=== PATIENT | male | born 1945 | race Caucasian/White ===

== ENCOUNTER 2019-02-10 06:19 | Inpatient (IN) ==
[2019-02-10 07:17] LABS: Appearance Urine Turbid (Clear)
[2019-02-10 07:25] LABS: Color Urine Red
[2019-02-10 07:26] LABS: Specific Gravity Urine 1.009 (1.000-1.060)
[2019-02-10 07:27] LABS: Protein Urine Positive (Negative)
[2019-02-10 07:31] LABS: Epithelial Cell Urine 0-5 /lpf (0-5); RBC Urine >30 /hpf (0-4)
[2019-02-10 07:32] LABS: Bacteria Urine 2+ (Negative)
--- NOTE | 2019-02-10 07:47 | History & Physical Report ---
Date of Service February 10, 2019 Assessment & Plan (1) Hematuria: More than likely from Smith related irritation. Unfortunately he is obstructing his Smith now. Work-up continuous bladder irrigation, consult urology. No signs or symptoms of infection. Follow clinically. (2) BPH with obstruction/lower urinary tract symptoms: He is in a bad situation with this, Smith drainage alone is no longer working because of the hematuria/clotting up of his catheter. More than likely this will need an acute remedy for him even to be on to be safe at home. Consult urology, anticipate strong possibility of OR versus if this improves with irrigation. Follow clinically (3) Acute urinary retention: See above (4) BPH (benign prostatic hyperplasia): See above. Until it is clear what is going on operatively, we will continue his tamsulosin and terazosin. (5) Hyperlipidemia: P.o. (6) Complication, blocked Smith catheter: See above (7) DVT prophylaxis: SCDs (pharmacologic prophylaxis contraindicated due to his gross hematuria) (8) Discharge planning issues: Admission to medical under [facility] service, urology consult. His acute situation appears to need a fairly significant remedy given that outpatient management is failed multiple times. (9) Agent orange exposure: (10) History of pneumonectomy: History of Present Illness Chief Complaint: Urinary retention, hematuria Primary Care Provider: Trav Yadav Patient very pleasant 73-year-old male who notes the last maybe 10 to 11 days he has had difficulties with urinary retention. He notes that his PCP has been following his prostate for the last several years and was recommending urology evaluation (presumably for a TURP) but patient had been declining. Then unfortunately about 2 weeks ago he started to have difficulty voiding. He has had Smith catheters placed which alleviates the obstruction, but then whenever they are removed he is no longer able to void. After this he started with hematuria, seemingly after placement of 1 of the catheters. Now he is having difficulty with his catheter obstructing with blood. Whenever it flushes he is much more comfortable, but then whenever it clogs obviously he quickly becomes uncomfortable. Right now he is feeling better than he was before given that his catheter was recently flushed. He has not had any fevers, chills, sweats, nausea, vomiting. And if it was not for his bladder issues would feel like he is in his baseline state of health. Review of systems otherwise negative except for as above Allergies Allergy/AdvReac Type Severity Reaction Status Date / Time iodine Allergy Intermediate SEAFOOD-HIV Verified 02/10/19 00:00 ES SEAFOOD Allergy Intermediate Hives Uncoded 02/10/19 00:00 Home Medications Home Medications Medication Instructions Recorded Confirmed Type finasteride 5 mg PO HS 09/02/18 02/10/19 History multivitamin 1 tab PO QAM 09/02/18 02/10/19 History simvastatin 10 mg PO HS 02/04/19 02/10/19 History tamsulosin [Flomax] 0.4 mg PO DAILY #10 cap 02/04/19 02/10/19 Rx aspirin, buffered 325 mg PO DAILY 02/10/19 02/10/19 History buspirone 10 mg PO BID 02/10/19 02/10/19 History calcium carbonate-vitamin D3 1 tab PO BID 02/10/19 02/10/19 History [Calcium 500 + D] olodaterol 2 inh INHALATION DAILY 02/10/19 02/10/19 History terazosin 5 mg PO BID 02/10/19 02/10/19 History Past Med/Surg History Medical History Agent orange exposure Hyperlipidemia BPH (benign prostatic hyperplasia) Anxiety (Chronic) Surgical History History of pneumonectomy Family History Other Family history non-contributory Vascular disease Social History Preferred Language: Irish Feels Safe at Home: Yes Smoking Status: Former smoker Review of Systems Review of Systems: All systems reviewed & are unremarkable except as noted in HPI & below Physical Exam Physical Exam: General he is awake alert oriented pleasant but appears to be in moderate distress HEENTnormocephalic atraumatic mucous membranes moist Cardioregular no rub murmurs or gallops Lungsclear to auscultation no rales rhonchi or wheezes with good effort Abdomen soft nondistended until his lower abdomen where he is mildly distended and quite tender over his bladder, no guarding/rebound/rigidity Extremities show no sinus clubbing or edema no calf tenderness Skin no rashes no pallor icterus Neuro cranial nerves II through XII grossly intact gross motor and sensory intact Musculoskeletalno gross deformities Mental status good recent and remote recall normal mood and affect good judgment and insight Results & Data Vital Signs (Past 12 Hours) Vital Signs Temp Pulse Resp BP Pulse Ox 02/10/19 06:40 97 02/10/19 06:33 36.5 C 80 20 155/103 H 97 PG Care Time/CCT Total # of Minutes Spent Total Time Spent with Patient: Total time spent is greater than 50% in coordination of care (as documented) at patient's floor/unit and/or counseling patient: (1) Hematuria Hematuria type: unspecified type Qualified Code(s): R31.9 - Hematuria, unspecified (2) Complication, blocked Smith catheter Encounter type: initial encounter Qualified Code(s): T83.091A - Other mechanical complication of indwelling urethral catheter, initial encounter
[2019-02-10 08:13] LABS: Basophils # (auto) 0.06 K/uL (0-0.2); Basophils % (auto) 0.6 %; Eosinophils # (auto) 0.24 K/uL (0-0.5); Eosinophils % (auto) 2.5 %; Hematocrit (blood only) 42.5 % (42-52); Hemoglobin 15.3 g/dL (14.0-18.0); Immature Granulocytes # (auto) 0.02 K/uL (0.00-0.02); Immature Granulocytes % (auto) 0.2 %; Lymphocytes # (auto) 0.91 K/uL (1.2-3.4); Lymphocytes % (auto) 9.4 %; Mean Corpuscular Volume 89.7 fL (80-100); Mean Platelet Volume 9.8 fL (7.4-10.4); Monocytes # (auto) 0.77 K/uL (0.11-0.59); Neutrophils # (auto) 7.64 K/uL (1.4-6.5); Neutrophils % (auto) 79.3 %; Platelet Count 130 K/uL (130-400); RDW Coefficient of Variation 12.6 % (11.5-14.5); RDW Standard Deviation 41.4 fL (36.4-46.3); Red Blood Count 4.74 M/uL (4.7-6.1); White Blood Count 9.64 K/uL (4.8-10.8)
[2019-02-10 08:31] LABS: iSTAT Creatinine 1.3 mg/dl (0.6-1.3); iSTAT Ionized Calcium 1.22 mmol/l (1.12-1.32); iSTAT Potassium 4.2 mEq/L (3.3-5.0)
[2019-02-10 08:36] LABS: BUN Creatinine Ratio 16.7 (10-20); Calcium 9.7 mg/dl (8.5-10.1); Creatinine Clr Calc Pharmacy 54.8 ml/min; Est GFR (African American) 59.3; Est GFR (Non-African American) 51.2; Potassium 4.1 mmol/L (3.5-5.1)
[2019-02-10 08:39] LABS: Albumin Globulin Ratio 1.2 (0.9-2); Bilirubin,Total 0.8 mg/dl (0.2-1); Globulin 3.4 gm/dl (2.5-4.0); Total Protein 7.4 gm/dl (6.4-8.2)
[2019-02-10] MEDS ORDERED: TERAZOSIN HCL 5 MG CAP PO SCH (09:02)
[2019-02-10] MEDS ORDERED: TAMSULOSIN HCL 0.4 MG CAP PO SCH (09:02)
[2019-02-10] MEDS ORDERED: ONDANSETRON INJ 2 MG/ML 2 ML VIAL IV PRN (09:02)
--- NOTE | 2019-02-10 09:04 | Emergency Department Note ---
History of Present Illness General Chief complaint: Catheter Replacement Stated complaint: CATH REPL Time Seen by Provider: 02/10/19 06:29 Source: patient, family, RN notes reviewed and old records reviewed Mode of arrival: ambulatory Limitations: no limitations History of Present Illness Provider complaint: Hematuria with suprapubic abd pain Onset (ago): hour(s) less than 1 Location: pelvis Radiation: non-radiation Severity: severe and similar to prior episodes Pain Consistency: + constant Maximum Pain Intensity: 10 Quality: + aching Relieved By: + none Exacerbated By: + none Associated symptoms: + denies other symptoms Treatments prior to arrival: none This is a 73-year-old male who presents back to the emergency department after continued bleeding from his Smith catheter which is causing the catheter declogged. Patient was here earlier in the night and had the Smith irrigated. At that time he was draining clear fluid. Patient began bleeding again. He is still awaiting to see a urologist with the [facility]. Home Medications Home Medications Medication Instructions Recorded Confirmed Type finasteride 5 mg PO HS 09/02/18 02/10/19 History multivitamin 1 tab PO QAM 09/02/18 02/10/19 History simvastatin 10 mg PO HS 02/04/19 02/10/19 History tamsulosin [Flomax] 0.4 mg PO DAILY #10 cap 02/04/19 02/10/19 Rx aspirin, buffered 325 mg PO DAILY 02/10/19 02/10/19 History buspirone 10 mg PO BID 02/10/19 02/10/19 History calcium carbonate-vitamin D3 1 tab PO BID 02/10/19 02/10/19 History [Calcium 500 + D] olodaterol 2 inh INHALATION DAILY 02/10/19 02/10/19 History terazosin 5 mg PO BID 02/10/19 02/10/19 History Allergies Allergy/AdvReac Type Severity Reaction Status Date / Time iodine Allergy Intermediate SEAFOOD-HIV Verified 02/10/19 00:00 ES SEAFOOD Allergy Intermediate Hives Uncoded 02/10/19 00:00 Past Med/Surg History Medical History Agent orange exposure Hyperlipidemia BPH (benign prostatic hyperplasia) Anxiety (Chronic) Surgical History History of pneumonectomy Family History Other Family history non-contributory Vascular disease Social History Preferred Language: Iraqi Communication Ability: Effective Sport Intern Required: No Beliefs That Will Affect Care: None Current Living Situation: Significant Other Other Information That Helps Us Care for You: No Feels Safe at Home: Yes Safety Concerns: Feels Safe At This Time Smoking Status: Former smoker Tobacco Type: cigarettes Cigarettes Per Day: 40 pack year history Do You Dip or Chew Tobacco: No Second Hand Exposure: No Tobacco Cessation Education Requested by Patient: No Hx Alcohol Use: No Hx Substance Use: No Review of Systems A total of 10 systems reviewed and were otherwise negative Physical Exam Vital Signs Vital Signs - 24 hr 02/10/19 06:33 02/10/19 06:40 02/10/19 08:23 Temperature 36.5 C Temperature Source Oral Sepsis Recent Fever Within 48 Hours No Sepsis Action Taken by Nursing No Action Required Pulse Rate 80 Pulse Rate [Finger] 64 Respiratory Rate 20 16 Blood Pressure 155/103 H Blood Pressure [Right Arm] 142/85 H Blood Pressure Mean 120 Blood Pressure Mean [Right Arm] 104 Pulse Oximetry 97 97 98 Oxygen Delivery Method Room Air Room Air GENERAL: Patient is a healthy-appearing well-nourished HEAD: Normocephalic atraumatic EYES: Ocular movements intact pupils equal and react to light OROPHARYNX mucous membranes are moist no exudates present no erythema or edema present NECK: Supple no nuchal rigidity CHEST: Good equal expansion LUNGS: Clear and equal to auscultation CARDIAC: Normal S1 and S2 ABDOMEN: Soft tenbder in suprapubic area, Smith in place draining bloody discharge BACK: No CVA tenderness EXTREMITIES: No pain upon palpation normal muscle strength in all groups no clubbing cyanosis or edema NEURO: Patient is following commands is answering questions appropriately. Alert and oriented x3 Cranial Nerves 2-12 grossly intact Medical Decision Making Laboratory Data Result diagrams: 02/10/19 08:00 02/10/19 08:00 Lab Results 02/10/19 02/10/19 02/10/19 Range/Units 06:45 08:00 08:00 WBC 9.64 (4.8-10.8) K/uL RBC 4.74 (4.7-6.1) M/uL Hgb 15.3 (14.0-18.0) g/dL POC Hgb (14.0-18.0) g/dl Hct 42.5 (42-52) % POC Hct (42-52) % MCV 89.7 (80-100) fL MCH 32.3 (25-34) pg MCHC 36.0 (32-36) g/dL RDW Std Deviation 41.4 (36.4-46.3) fL RDW Coeff of Henrry 12.6 (11.5-14.5) % Plt Count 130 (130-400) K/uL MPV 9.8 (7.4-10.4) fL Immature Gran % (Auto) 0.2 % Neut % (Auto) 79.3 % Lymph % (Auto) 9.4 % Quay % (Auto) 8.0 % Eos % (Auto) 2.5 % Baso % (Auto) 0.6 % Immature Gran # (Auto) 0.02 (0.00-0.02) K/uL Neut # (Auto) 7.64 H (1.4-6.5) K/uL Lymph # (Auto) 0.91 L (1.2-3.4) K/uL Quay # (Auto) 0.77 H (0.11-0.59) K/uL Eos # (Auto) 0.24 (0-0.5) K/uL Baso # (Auto) 0.06 (0-0.2) K/uL POC Sodium (135-144) mEq/L Sodium 139 (136-145) mmol/L POC Potassium (3.3-5.0) mEq/L Potassium 4.1 (3.5-5.1) mmol/L POC Chloride (101-112) mEq/L Chloride 106 (98-107) mmol/L Carbon Dioxide 25 (21-32) mmol/L POC Total CO2 (24-31) mEq/l Anion Gap 7.0 (3-11) POC Anion Gap (16-25) mmol/L POC BUN (7-18) mg/dl BUN 23 H (7-18) mg/dl Creatinine 1.37 (0.6-1.4) mg/dl POC Creatinine (0.6-1.3) mg/dl Est Cr Clr Drug Dosing 54.8 ml/min Est GFR ( Amer) 59.3 Est GFR (Non-Af Amer) 51.2 BUN/Creatinine Ratio 16.7 (10-20) Glucose 121 H (70-99) mg/dl POC Glucose (other) (70-99) mg/dl Calcium 9.7 (8.5-10.1) mg/dl POC Ioniz Calcium Pamela (1.12-1.32) mmol/l Total Bilirubin 0.8 (0.2-1) mg/dl AST 24 (15-37) U/L ALT 45 (12-78) U/L Alkaline Phosphatase 61 (45-117) U/L Total Protein 7.4 (6.4-8.2) gm/dl Albumin 4.0 (3.4-5.0) gm/dl Globulin 3.4 (2.5-4.0) gm/dl Albumin/Globulin Ratio 1.2 (0.9-2) Lipase 159 (73-393) U/L Urine Color Red Urine Appearance Turbid A (Clear) Urine pH (4.5-7.5) Ur Specific Sinai 1.009 (1.000-1.060) Urine Protein Positive H (Negative) Urine Glucose (UA) (Negative) Urine Ketones (Negative) Urine Blood (Negative) Urine Nitrite (Negative) Urine Bilirubin (Negative) Urine Urobilinogen (Negative) Ur Leukocyte Esterase (Negative) Urine RBC >30 H (0-4) /hpf Urine WBC 5-10 H (0-5) /hpf Ur Epithelial Cells 0-5 (0-5) /lpf Urine Bacteria 2+ H (Negative) Hyaline Casts 5-10 H (0-5) /lpf 02/10/19 Range/Units 08:09 WBC (4.8-10.8) K/uL RBC (4.7-6.1) M/uL Hgb (14.0-18.0) g/dL POC Hgb 15.0 (14.0-18.0) g/dl Hct (42-52) % POC Hct 44 (42-52) % MCV (80-100) fL MCH (25-34) pg MCHC (32-36) g/dL RDW Std Deviation (36.4-46.3) fL RDW Coeff of Henrry (11.5-14.5) % Plt Count (130-400) K/uL MPV (7.4-10.4) fL Immature Gran % (Auto) % Neut % (Auto) % Lymph % (Auto) % Quay % (Auto) % Eos % (Auto) % Baso % (Auto) % Immature Gran # (Auto) (0.00-0.02) K/uL Neut # (Auto) (1.4-6.5) K/uL Lymph # (Auto) (1.2-3.4) K/uL Quay # (Auto) (0.11-0.59) K/uL Eos # (Auto) (0-0.5) K/uL Baso # (Auto) (0-0.2) K/uL POC Sodium 139 (135-144) mEq/L Sodium (136-145) mmol/L POC Potassium 4.2 (3.3-5.0) mEq/L Potassium (3.5-5.1) mmol/L POC Chloride 103 (101-112) mEq/L Chloride (98-107) mmol/L Carbon Dioxide (21-32) mmol/L POC Total CO2 22 L (24-31) mEq/l Anion Gap (3-11) POC Anion Gap 19.0 (16-25) mmol/L POC BUN 24 H (7-18) mg/dl BUN (7-18) mg/dl Creatinine (0.6-1.4) mg/dl POC Creatinine 1.3 (0.6-1.3) mg/dl Est Cr Clr Drug Dosing ml/min Est GFR ( Amer) Est GFR (Non-Af Amer) BUN/Creatinine Ratio (10-20) Glucose (70-99) mg/dl POC Glucose (other) 124 H (70-99) mg/dl Calcium (8.5-10.1) mg/dl POC Ioniz Calcium Pamela 1.22 (1.12-1.32) mmol/l Total Bilirubin (0.2-1) mg/dl AST (15-37) U/L ALT (12-78) U/L Alkaline Phosphatase (45-117) U/L Total Protein (6.4-8.2) gm/dl Albumin (3.4-5.0) gm/dl Globulin (2.5-4.0) gm/dl Albumin/Globulin Ratio (0.9-2) Lipase (73-393) U/L Urine Color Urine Appearance (Clear) Urine pH (4.5-7.5) Ur Specific Sinai (1.000-1.060) Urine Protein (Negative) Urine Glucose (UA) (Negative) Urine Ketones (Negative) Urine Blood (Negative) Urine Nitrite (Negative) Urine Bilirubin (Negative) Urine Urobilinogen (Negative) Ur Leukocyte Esterase (Negative) Urine RBC (0-4) /hpf Urine WBC (0-5) /hpf Ur Epithelial Cells (0-5) /lpf Urine Bacteria (Negative) Hyaline Casts (0-5) /lpf MDM Narrative This is a 73-year-old male who presents emergency department complaining of continued blocked Smith. I will note that the patient has been here a number of times over the past 2 weeks. Based on this I did discuss the case with the urologist who asked that the patient be admitted to the hospital. I did discuss the case with the hospitalist service who agreed to admit the patient. Patient was in agreement with the treatment plan. Impression & Plan Acute urinary retention, Hematuria Discharge Plan Visit Data Chief Complaint: Catheter Replacement Stated Complaint: CATH REPL ED Provider: Dominic Fleming Discharge Problem: Acute urinary retention, Hematuria Discharge Instructions Interventions: ED Discharge Assessment Last Done: 02/10/19 08:31 Discharge Problem: Hematuria Qualifiers: Hematuria type: unspecified type Qualified Code(s): R31.9 - Hematuria, unspeci fied
--- NOTE | 2019-02-10 09:05 | CT Scan Report ---
CT OF THE ABDOMEN AND PELVIS WITHOUT CONTRAST CLINICAL HISTORY: Blocked dong. COMPARISON STUDY: CT of the abdomen and pelvis February 04, 2019. TECHNIQUE: Axial images of the abdomen and pelvis were obtained without IV contrast. Images were revi ewed in the axial, sagittal, and coronal planes. Automated exposure control was utilized for the bonnie dy. A dose lowering technique was utilized adhering to the principles of ALARA. FINDINGS: Imaged portions of the lower chest partially visualize a left pneumonectomy. Fatty infiltra tion of the liver is noted. Unenhanced images of the spleen, adrenal glands and pancreas are unremark able. Evaluation of the abdomen and pelvis is suboptimal on this unenhanced examination. A few puncta te left renal calculi are present. There are no ureteral calculi. There is no hydronephrosis or hydro ureter. The prostate is enlarged, measuring 6.2 cm in transverse dimension. The bladder is collapsed and contains a Dong balloon and trace gas. The Dong catheter appears appropriately positioned. Ther e is no evidence for a bowel obstruction. The appendix is normal. There are no suspicious osseous les ions. No lymphadenopathy is present. The small bilateral renal lesions shown on prior contrast enhanc ed CT or better appreciated on that exam. IMPRESSION: 1. Decompressed urinary bladder containing a Dong balloon and trace gas. Dong catheter appears appr opriately positioned. Moderate enlargement of the prostate. No hydronephrosis. 2. Punctate left renal calculi. No ureteral calculi. 2. Fatty liver. Electronically signed by: Stefano Steel M.D. 02/10/2019 9:04 AM
[2019-02-10 09:07] VITALS: PULSE 77; TEMP 98.1; O2SAT 95
--- NOTE | 2019-02-10 09:33 | Urology Consultation ---
Date of Consultation February 10, 2019 Assessment & Plan (1) Acute urinary retention: A/P: 73-year-old male with BPH on maximal medical therapy, recurrent gross hematuria and urinary retention. Patient provided a p.o. diet today as his urine appeared to be clearing with intermittent fluctuation of his hematuria. 16 [place] [address] in [address] was at risk for obstruction with relatively small clots. This was therefore exchanged for a 20 [place] coud catheter with 10 cc of sterile water placed in the balloon. Bladder was irrigated manually by myself with return of a number of small clots but otherwise clear urine suggesting no active bleeding. Triggers for prostatic bleeding such as perineal pressure or physical activity are reviewed with the patient. We will leave the catheter in place to gravity drainage to allow for bladder and urethral rest in the short-term. Patient is offered follow-up with our service versus continued follow-up through the [place] service. He opts for the former. Seen his history we will tentatively schedule the patient for a greenlight TURP and arrange for office cystoscopy for evaluation of his anatomy prior to the OR. Risks and benefits as well as surgical plan are reviewed with the patient who vocalizes good understanding of the treatment plan. (2) BPH with obstruction/lower urinary tract symptoms: (3) Hematuria: History of Present Illness Reason for Consultation: Urinary retention, recurrent gross hematuria, BPH. Attending Physician: Cy Caldwell DO History of Present Illness Patient is a pleasant 73-year-old male, resident of [place], with a long-standing history of bothersome voiding symptoms on maximal medical therapy with finasteride and tamsulosin as an outpatient. He reports that he has seen a urologist at the [facility] in [place] and undergone numerous cystoscopies demonstrating BPH with no bladder lesions. Due to recurrent gross hematuria, clot retention and urinary retention a TURP has been recommended. Patient was referred to [place] to have this done via the [place] system. Unfortunately, over the course of the recent past, patient has developed difficulties with recurrent gross hematuria, clot retention requiring Smith placement and irrigation. He has been admitted for possible intervention after placement of a 16 [place] Smith catheter which required irrigation. Urology is consulted acutely to assist with his care. Allergies Allergy/AdvReac Type Severity Reaction Status Date / Time iodine Allergy Intermediate SEAFOOD-HIV Verified 02/10/19 00:00 ES SEAFOOD Allergy Intermediate Hives Uncoded 02/10/19 00:00 Home Medications Home Medications Medication Instructions Recorded Confirmed Type finasteride 5 mg PO HS 09/02/18 02/10/19 History multivitamin 1 tab PO QAM 09/02/18 02/10/19 History simvastatin 10 mg PO HS 02/04/19 02/10/19 History tamsulosin [Flomax] 0.4 mg PO DAILY #10 cap 02/04/19 02/10/19 Rx aspirin, buffered 325 mg PO DAILY 02/10/19 02/10/19 History buspirone 10 mg PO BID 02/10/19 02/10/19 History calcium carbonate-vitamin D3 1 tab PO BID 02/10/19 02/10/19 History [Calcium 500 + D] olodaterol 2 inh INHALATION DAILY 02/10/19 02/10/19 History terazosin 5 mg PO BID 02/10/19 02/10/19 History Patient History Medical History Agent orange exposure Hyperlipidemia BPH (benign prostatic hyperplasia) Anxiety (Chronic) Surgical History History of pneumonectomy Family History Other Family history non-contributory Vascular disease Social History Preferred Language: Thai Communication Ability: Effective Beliefs That Will Affect Care: None Current Living Situation: Significant Other Feels Safe at Home: Yes Smoking Status: Former smoker Tobacco Type: cigarettes Cigarettes Per Day: 40 pack year history Second Hand Exposure: No Hx Alcohol Use: No Hx Substance Use: No Review of Systems Constitutional: no fever and no chills Eyes: no diplopia and no decreased night vision Ear, Nose, Mouth, Throat: no ear pain and no ear trauma Respiratory: no cough and no dyspnea Cardiovascular: no chest pain Gastrointestinal: + abdominal pain; no nausea and no vomiting Genitourinary: + decreased urination and + hematuria Musculoskeletal: no muscle weakness Integumentary: no acne and no boil Neurologic: no localized weakness, no paralysis and no loss of sensation Psychiatric: no paranoia and no hallucinations Endocrine: + fatigue Hematologic / Lymphatic: + easy bleeding Allergy / Immunological: no tongue swelling Physical Exam Constitutional: WD/WN, vitals as above Eyes: eyes not dysmorphic ENMT: Ears: no external ear abnormality Neck: trachea midline; no anterior neck swelling Respiratory: no respiratory distress and does not use accessory muscles Cardiovascular: Vessels: radial pulses present Gastrointestinal (Abdomen): Inspection/Auscultation: abdomen normal to inspection; abdomen not distended Percussion/Palpation: abdomen soft; abdomen nontender Musculoskeletal: Head/Neck/Chest: normocephalic Skin: normal turgor; no lesions Neurologic: awake; not obtunded Psychiatric: Orientation: oriented x 3 Genitourinary: no penis abnormality Lymphatic: no lymphadenopathy Results & Data Vital Signs (Past 12 Hours) Vital Signs Temp Pulse Pulse Resp BP BP BP 02/10/19 09:00 36.7 C 77 18 165/100 H 02/10/19 08:23 64 16 142/85 H 02/10/19 06:40 02/10/19 06:33 36.5 C 80 20 155/103 H Pulse Ox 02/10/19 09:00 95 02/10/19 08:23 98 02/10/19 06:40 97 02/10/19 06:33 97 Laboratory Results Laboratory Results WBC 9.64 K/uL (4.8-10.8) 02/10/19 08:00 RBC 4.74 M/uL (4.7-6.1) 02/10/19 08:00 Hgb 15.3 g/dL (14.0-18.0) 02/10/19 08:00 POC Hgb 15.0 g/dl (14.0-18.0) 02/10/19 08:09 Hct 42.5 % (42-52) 02/10/19 08:00 POC Hct 44 % (42-52) 02/10/19 08:09 MCV 89.7 fL (80-100) 02/10/19 08:00 MCH 32.3 pg (25-34) 02/10/19 08:00 MCHC 36.0 g/dL (32-36) 02/10/19 08:00 RDW Std Deviation 41.4 fL (36.4-46.3) 02/10/19 08:00 RDW Coeff of Henrry 12.6 % (11.5-14.5) 02/10/19 08:00 Plt Count 130 K/uL (130-400) 02/10/19 08:00 MPV 9.8 fL (7.4-10.4) 02/10/19 08:00 Immature Gran % (Auto) 0.2 % 02/10/19 08:00 Neut % (Auto) 79.3 % 02/10/19 08:00 Lymph % (Auto) 9.4 % 02/10/19 08:00 [place] % (Auto) 8.0 % 02/10/19 08:00 Eos % (Auto) 2.5 % 02/10/19 08:00 Baso % (Auto) 0.6 % 02/10/19 08:00 Immature Gran # (Auto) 0.02 K/uL (0.00-0.02) 02/10/19 08:00 Neut # (Auto) 7.64 K/uL (1.4-6.5) H 02/10/19 08:00 Lymph # (Auto) 0.91 K/uL (1.2-3.4) L 02/10/19 08:00 [place] # (Auto) 0.77 K/uL (0.11-0.59) H 02/10/19 08:00 Eos # (Auto) 0.24 K/uL (0-0.5) 02/10/19 08:00 Baso # (Auto) 0.06 K/uL (0-0.2) 02/10/19 08:00 POC Sodium 139 mEq/L (135-144) 02/10/19 08:09 Sodium 139 mmol/L (136-145) 02/10/19 08:00 POC Potassium 4.2 mEq/L (3.3-5.0) 02/10/19 08:09 Potassium 4.1 mmol/L (3.5-5.1) 02/10/19 08:00 POC Chloride 103 mEq/L (101-112) 02/10/19 08:09 Chloride 106 mmol/L (98-107) 02/10/19 08:00 Carbon Dioxide 25 mmol/L (21-32) 02/10/19 08:00 POC Total CO2 22 mEq/l (24-31) L 02/10/19 08:09 Anion Gap 7.0 (3-11) 02/10/19 08:00 POC Anion Gap 19.0 mmol/L (16-25) 02/10/19 08:09 POC BUN 24 mg/dl (7-18) H 02/10/19 08:09 BUN 23 mg/dl (7-18) H 02/10/19 08:00 Creatinine 1.37 mg/dl (0.6-1.4) 02/10/19 08:00 POC Creatinine 1.3 mg/dl (0.6-1.3) 02/10/19 08:09 Est Cr Clr Drug Dosing 54.8 ml/min 02/10/19 08:00 Est GFR ( Amer) 59.3 02/10/19 08:00 Est GFR (Non-Af Amer) 51.2 02/10/19 08:00 BUN/Creatinine Ratio 16.7 (10-20) 02/10/19 08:00 Glucose 121 mg/dl (70-99) H 02/10/19 08:00 POC Glucose (other) 124 mg/dl (70-99) H 02/10/19 08:09 Calcium 9.7 mg/dl (8.5-10.1) 02/10/19 08:00 POC Ioniz Calcium Pamela 1.22 mmol/l (1.12-1.32) 02/10/19 08:09 Total Bilirubin 0.8 mg/dl (0.2-1) 02/10/19 08:00 AST 24 U/L (15-37) 02/10/19 08:00 ALT 45 U/L (12-78) 02/10/19 08:00 Alkaline Phosphatase 61 U/L (45-117) 02/10/19 08:00 Total Protein 7.4 gm/dl (6.4-8.2) 02/10/19 08:00 Albumin 4.0 gm/dl (3.4-5.0) 02/10/19 08:00 Globulin 3.4 gm/dl (2.5-4.0) 02/10/19 08:00 Albumin/Globulin Ratio 1.2 (0.9-2) 02/10/19 08:00 Lipase 159 U/L (73-393) 02/10/19 08:00 Urine Color Red 02/10/19 06:45 Urine Appearance Turbid (Clear) A 02/10/19 06:45 Urine pH (4.5-7.5) 02/10/19 06:45 Ur Specific [place] 1.009 (1.000-1.060) 02/10/19 06:45 Urine Protein Positive (Negative) H 02/10/19 06:45 Urine Glucose (UA) (Negative) 02/10/19 06:45 Urine Ketones (Negative) 02/10/19 06:45 Urine Blood (Negative) 02/10/19 06:45 Urine Nitrite (Negative) 02/10/19 06:45 Urine Bilirubin (Negative) 02/10/19 06:45 Urine Urobilinogen (Negative) 02/10/19 06:45 Ur Leukocyte Esterase (Negative) 02/10/19 06:45 Urine RBC >30 /hpf (0-4) H 02/10/19 06:45 Urine WBC 5-10 /hpf (0-5) H 02/10/19 06:45 Ur Epithelial Cells 0-5 /lpf (0-5) 02/10/19 06:45 Urine Bacteria 2+ (Negative) H 02/10/19 06:45 Hyaline Casts 5-10 /lpf (0-5) H 02/10/19 06:45 (1) Hematuria Hematuria type: unspecified type Qualified Code(s): R31.9 - Hematuria, unspecified
[2019-02-10 11:29] VITALS: BP 126/84
--- NOTE | 2019-02-10 13:00 | Urology Consultation ---
Date of Consultation February 10, 2019 Assessment & Plan (1) Acute urinary retention: A/P: 73-year-old male with BPH on maximal medical therapy, recurrent gross hematuria and urinary retention. Patient provided a p.o. diet today as his urine appeared to be clearing with intermittent fluctuation of his hematuria. [address] [place] was at risk for obstruction with relatively small clots. This was therefore exchanged for a 20 Hong Konger coud catheter with 10 cc of sterile water placed in the balloon. Bladder was irrigated manually by myself with return of a number of small clots but otherwise clear urine suggesting no active bleeding. Triggers for prostatic bleeding such as perineal pressure or physical activity are reviewed with the patient. We will leave the catheter in place to gravity drainage to allow for bladder and urethral rest in the short-term. Patient is offered follow-up with our service versus continued follow-up through the [place] service. He opts for the former. Seen his history we will tentatively schedule the patient for a greenlight TURP and arrange for office cystoscopy for evaluation of his anatomy prior to the OR. Risks and benefits as well as surgical plan are reviewed with the patient who vocalizes good understanding of the treatment plan. Patient should be stable for discharge home from a urologic perspective today. We will leave the Smith catheter in place until next week to allow for bladder and urethral rest. He reports he is anxious to get home and look after his who is suffering from early stage dementia. Thank you for allowing us to participate in this patient's care. Please contact our service with any questions or concerns. Will arrange for outpatient follow- up intervention as discussed above. (2) BPH with obstruction/lower urinary tract symptoms: (3) Hematuria: History of Present Illness Attending Physician: Cy Caldwell DO History of Present Illness Patient is a pleasant 73-year-old male, resident of [place], with a long-standing history of bothersome voiding symptoms on maximal medical therapy with finasteride and tamsulosin as an outpatient. He reports that he has seen a urologist at the [facility] in [place] and undergone numerous cystoscopies demonstrating BPH with no bladder lesions. Due to recurrent gross hematuria, clot retention and urinary retention a TURP has been recommended. Patient was referred to [place] to have this done via the [place] system. Unfortunately, over the course of the recent past, patient has developed difficulties with recurrent gross hematuria, clot retention requiring Smith placement and irrigation. He has been admitted for possible intervention after placement of a 16 [place] Konger Smith catheter which required irrigation. Urology is consulted acutely to assist with his care. Allergies Allergy/AdvReac Type Severity Reaction Status Date / Time iodine Allergy Intermediate SEAFOOD-HIV Verified 02/10/19 00:00 ES SEAFOOD Allergy Intermediate Hives Uncoded 02/10/19 00:00 Home Medications Home Medications Medication Instructions Recorded Confirmed Type finasteride 5 mg PO HS 09/02/18 02/10/19 History multivitamin 1 tab PO QAM 09/02/18 02/10/19 History simvastatin 10 mg PO HS 02/04/19 02/10/19 History tamsulosin [Flomax] 0.4 mg PO DAILY #10 cap 02/04/19 02/10/19 Rx aspirin, buffered 325 mg PO DAILY 02/10/19 02/10/19 History buspirone 10 mg PO BID 02/10/19 02/10/19 History calcium carbonate-vitamin D3 1 tab PO BID 02/10/19 02/10/19 History [Calcium 500 + D] olodaterol 2 inh INHALATION DAILY 02/10/19 02/10/19 History terazosin 5 mg PO BID 02/10/19 02/10/19 History Patient History Medical History Agent orange exposure Hyperlipidemia BPH (benign prostatic hyperplasia) Anxiety (Chronic) Surgical History History of pneumonectomy Family History Other Family history non-contributory Vascular disease Social History Preferred Language: Chadian Communication Ability: Effective Beliefs That Will Affect Care: None Current Living Situation: Significant Other Feels Safe at Home: Yes Smoking Status: Former smoker Tobacco Type: cigarettes Cigarettes Per Day: 40 pack year history Second Hand Exposure: No Hx Alcohol Use: No Hx Substance Use: No Review of Systems Constitutional: no fever and no chills Eyes: no diplopia and no discharge Ear, Nose, Mouth, Throat: no ear trauma Respiratory: no hemoptysis Cardiovascular: no chest pain Gastrointestinal: no nausea and no vomiting Genitourinary: + hematuria Musculoskeletal: no muscle weakness Integumentary: no acne and no boil Neurologic: no paralysis and no numbness Psychiatric: no paranoia Endocrine: + fatigue Hematologic / Lymphatic: + easy bleeding Allergy / Immunological: no tongue swelling Physical Exam Constitutional: WD/WN, vitals as above Eyes: eyes not dysmorphic ENMT: Ears: no hearing impairment and no external ear abnormality Neck: trachea midline; no anterior neck swelling Respiratory: no respiratory distress and does not use accessory muscles Cardiovascular: Vessels: radial pulses present Gastrointestinal (Abdomen): Inspection/Auscultation: abdomen not distended Percussion/Palpation: abdomen soft; abdomen nontender Musculoskeletal: Head/Neck/Chest: normocephalic and neck supple Skin: normal turgor Neurologic: awake; not obtunded Psychiatric: Orientation: oriented x 3 Genitourinary: no penis abnormality Lymphatic: no lymphadenopathy Results & Data Vital Signs (Past 12 Hours) Vital Signs Temp Pulse Pulse Resp BP BP BP 02/10/19 11:28 126/84 02/10/19 09:00 36.7 C 77 18 165/100 H 02/10/19 08:23 64 16 142/85 H 02/10/19 06:40 02/10/19 06:33 36.5 C 80 20 155/103 H Pulse Ox 02/10/19 11:28 02/10/19 09:00 95 02/10/19 08:23 98 02/10/19 06:40 97 02/10/19 06:33 97 Laboratory Results - last 48 hr 02/10/19 02/10/19 02/10/19 06:45 08:00 08:00 WBC 9.64 RBC 4.74 Hgb 15.3 POC Hgb Hct 42.5 POC Hct MCV 89.7 MCH 32.3 MCHC 36.0 RDW Std Deviation 41.4 RDW Coeff of Henrry 12.6 Plt Count 130 MPV 9.8 Immature Gran % (Auto) 0.2 Neut % (Auto) 79.3 Lymph % (Auto) 9.4 [place] % (Auto) 8.0 Eos % (Auto) 2.5 Baso % (Auto) 0.6 Immature Gran # (Auto) 0.02 Neut # (Auto) 7.64 H Lymph # (Auto) 0.91 L [place] # (Auto) 0.77 H Eos # (Auto) 0.24 Baso # (Auto) 0.06 POC Sodium Sodium 139 POC Potassium Potassium 4.1 POC Chloride Chloride 106 Carbon Dioxide 25 POC Total CO2 Anion Gap 7.0 POC Anion Gap POC BUN BUN 23 H Creatinine 1.37 POC Creatinine Est Cr Clr Drug Dosing 54.8 Est GFR ( Amer) 59.3 Est GFR (Non-Af Amer) 51.2 BUN/Creatinine Ratio 16.7 Glucose 121 H POC Glucose (other) Calcium 9.7 POC Ioniz Calcium Pamela Total Bilirubin 0.8 AST 24 ALT 45 Alkaline Phosphatase 61 Total Protein 7.4 Albumin 4.0 Globulin 3.4 Albumin/Globulin Ratio 1.2 Lipase 159 Urine Color Red Urine Appearance Turbid A Urine pH Ur Specific [place] 1.009 Urine Protein Positive H Urine Glucose (UA) Urine Ketones Urine Blood Urine Nitrite Urine Bilirubin Urine Urobilinogen Ur Leukocyte Esterase Urine RBC >30 H Urine WBC 5-10 H Ur Epithelial Cells 0-5 Urine Bacteria 2+ H Hyaline Casts 5-10 H 02/10/19 08:09 WBC RBC Hgb POC Hgb 15.0 Hct POC Hct 44 MCV MCH MCHC RDW Std Deviation RDW Coeff of Henrry Plt Count MPV Immature Gran % (Auto) Neut % (Auto) Lymph % (Auto) [place] % (Auto) Eos % (Auto) Baso % (Auto) Immature Gran # (Auto) Neut # (Auto) Lymph # (Auto) [place] # (Auto) Eos # (Auto) Baso # (Auto) POC Sodium 139 Sodium POC Potassium 4.2 Potassium POC Chloride 103 Chloride Carbon Dioxide POC Total CO2 22 L Anion Gap POC Anion Gap 19.0 POC BUN 24 H BUN Creatinine POC Creatinine 1.3 Est Cr Clr Drug Dosing Est GFR ( Amer) Est GFR (Non-Af Amer) BUN/Creatinine Ratio Glucose POC Glucose (other) 124 H Calcium POC Ioniz Calcium Pamela 1.22 Total Bilirubin AST ALT Alkaline Phosphatase Total Protein Albumin Globulin Albumin/Globulin Ratio Lipase Urine Color Urine Appearance Urine pH Ur Specific [place] Urine Protein Urine Glucose (UA) Urine Ketones Urine Blood Urine Nitrite Urine Bilirubin Urine Urobilinogen Ur Leukocyte Esterase Urine RBC Urine WBC Ur Epithelial Cells Urine Bacteria Hyaline Casts (1) Hematuria Hematuria type: unspecified type Qualified Code(s): R31.9 - Hematuria, unspecified
--- NOTE | 2019-02-10 19:46 | Discharge Summary ---
Date of Service February 10, 2019 Admission HPI Per Admitting Provider Patient very pleasant 73-year-old male who notes the last maybe 10 to 11 days he has had difficulties with urinary retention. He notes that his PCP has been following his prostate for the last several years and was recommending urology evaluation (presumably for a TURP) but patient had been declining. Then unfortunately about 2 weeks ago he started to have difficulty voiding. He has had Dong catheters placed which alleviates the obstruction, but then whenever they are removed he is no longer able to void. After this he started with hematuria, seemingly after placement of 1 of the catheters. Now he is having difficulty with his catheter obstructing with blood. Whenever it flushes he is much more comfortable, but then whenever it clogs obviously he quickly becomes uncomfortable. Right now he is feeling better than he was before given that his catheter was recently flushed. He has not had any fevers, chills, sweats, nausea, vomiting. And if it was not for his bladder issues would feel like he is in his baseline state of health. Review of systems otherwise negative except for as above Principal Diagnosis hematuria Discharge Data Allergies Allergy/AdvReac Type Severity Reaction Status Date / Time iodine Allergy Intermediate SEAFOOD-HIV Verified 02/10/19 00:00 ES SEAFOOD Allergy Intermediate Hives Uncoded 02/10/19 00:00 Consultations 02/10/19 06:29 Consult Urology Stat 02/10/19 07:11 ED Decision to Admit Stat Ordered Studies 02/10/19 06:36 CT abd pelvis wo con Stat Hospital Course (1) Hematuria: likely prostate bleeding from cath irritation urology input appreciated, larger cath should help with drainage (2) Acute urinary retention: BPH related. dong drainage - larger cath should help (3) BPH with obstruction/lower urinary tract symptoms: see above, outpt urology f/u (4) Elevated blood pressure reading: likely situational - but should have outpt f/u stable for home - outpt urology and PCP f/u appreciate urology input Total Time Total Time Spent Total Time Spent (In Minutes): <30 Discharge Plan Discharge Items Patient Disposition: Home - Self-Care Reason For Visit: URINARY RETNTION, HEMATURIA Discharge Diagnosis: urinary bleeding from prostate irritation Discharge Goals: Diagnostic testing and Therapeutic intervention Activity: As commented below Activity Comment: restrictions as outlined by Dr Rios Non-emergency contact: Primary Care Provider and Urologist Call non-emergency contact if: your symptoms worsen Follow-up/Referrals: Trav Yadav [Primary Care Provider] - Diet: Regular Addtl Provider Instructions: Dr West Rios - [facility] [phone] - his office should be calling you for an appointment. Hold off on your aspirin until the bleeding issues have resolved, then discuss further with your PCP in regards to the risks/benefits of continued use, as well as benefit of 81mg instead of 325mg. (the med list will say to keep taking it - but that is because terminal supervisor we do not have enough depth of your overall medical history to make a good judgement on the aspirin - in general 81mg provides the most benefit for people who require aspirin therapy, and in general people get the most benefit from aspirin when they've had a vascular event (heart attack, angina, stroke, TIA, etc) -- again for now hold off because of it acting as a mild blood thinner, but then talk w your PCP about the overall course of treatment). Prescriptions: Continued multivitamin Tablet 1 tab PO QAM RF: 0 finasteride 5 mg Tablet 5 mg PO HS RF: 0 simvastatin 20 mg Tablet 10 mg PO HS RF: 0 tamsulosin [Flomax] 0.4 mg capsule 0.4 mg PO DAILY Qty: 10 RF: 0 aspirin, buffered 325 mg Tablet 325 mg PO DAILY RF: 0 buspirone 10 mg Tablet 10 mg PO BID RF: 0 calcium carbonate-vitamin D3 [Calcium 500 + D] 500 mg(1,250mg) -200 unit Tablet 1 tab PO BID RF: 0 olodaterol 2.5 mcg/actuation Mist 2 inh INHALATION DAILY RF: 0 terazosin 5 mg Capsule 5 mg PO BID RF: 0 Stand-Alone Forms: [facility] Discharge Orders: Discharge Order (Routine); Ordered 02/10/19 Ordered By: Cy Caldwell Admission Data Admit Date/Time: 02/10/19 07:39 Attending Provider: Cy Caldwell Admit Provider: Cy Caldwell Primary Care Provider: Trav Yadav Other Providers: Torin St ; Cy Caldwell Service: Medical Other Interventions: Discharge Summary Assessment (RN) Last Done: 02/10/19 14:07 DC Date/Time DO NOT enter until pt leaves facility: 02/10/19 14:35
== END 2019-02-10 14:35 | disposition home or self-care (01) | DRG 700 ==
LOC: ED 06:19 → 3W 07:39

== ENCOUNTER 2019-02-21 05:22 | Observation (INO) ==
--- NOTE | 2019-02-14 15:57 | PAT Medication Instructions ---
Medication Instructions Date of Service February 14, 2019 Home Medications finasteride 5 mg PO HS multivitamin 1 tab PO QAM simvastatin 10 mg PO HS aspirin, buffered 325 mg PO DAILY buspirone 10 mg PO BID calcium carbonate-vitamin D3 [Calcium 500 + D] 1 tab PO BID olodaterol 2 inh INHALATION DAILY terazosin 5 mg PO BID nitrofurantoin macrocrystal 100 mg PO BID tamsulosin [Flomax] 0.4 mg PO QAM ASK your surgeon for instructions nitrofurantoin macrocrystal 100 mg PO BID ASK your prescriber and surgeon aspirin, buffered 325 mg PO DAILY DO NOT take the morning of surgery multivitamin 1 tab PO QAM calcium carbonate-vitamin D3 [Calcium 500 + D] 1 tab PO BID Take morning of surgery With a small sip of water, OTHERWISE NOTHING TO EAT OR DRINK AFTER MIDNIGHT: buspirone 10 mg PO BID olodaterol 2 inh INHALATION DAILY terazosin 5 mg PO BID tamsulosin [Flomax] 0.4 mg PO QAM Take evening before surgery finasteride 5 mg PO HS simvastatin 10 mg PO HS buspirone 10 mg PO BID calcium carbonate-vitamin D3 [Calcium 500 + D] 1 tab PO BID terazosin 5 mg PO BID Other Notes If you have any questions please call us at [phone] or [phone] or [phone] or [phone]
--- NOTE | 2019-02-15 13:15 | Anesthesiology Consultation ---
Date of Service February 15, 2019 Assessment & Plan (1) Encounter for pre-operative examination: Chart Review Chart Review: Acceptable Risk for Surgery and Patient seen in Pre Admission Testing Consults Requested none Teaching & Discussion Pre-Anesthesia Teaching/Discussion Notes: Instructed NPO after midnight before surgery, except medications with 15 cc of water. Medication instructions provided according to the PAT guidelines. History Surgery Operation Date: 02/21/19 07:30 Proposed Procedures p Transurethral Resection Prostate - Clifford Hammonds II, DO Height/Weight Height: 5 ft 8 in Weight: 95.3 kg Allergies Allergy/AdvReac Type Severity Reaction Status Date / Time SEAFOOD Allergy Intermediate Hives Uncoded 02/14/19 15:03 Medications Home Medications Medication Instructions Recorded Confirmed Last Taken finasteride 5 mg PO HS 09/02/18 02/14/19 02/03/19 multivitamin 1 tab PO QAM 09/02/18 02/14/19 02/04/19 simvastatin 10 mg PO HS 02/04/19 02/14/19 02/03/19 aspirin, buffered 325 mg PO DAILY 02/10/19 02/14/19 Unknown buspirone 10 mg PO BID 02/10/19 02/14/19 Unknown calcium carbonate-vitamin D3 1 tab PO BID 02/10/19 02/14/19 Unknown [Calcium 500 + D] olodaterol 2 inh INHALATION DAILY 02/10/19 02/14/19 Unknown terazosin 5 mg PO BID 02/10/19 02/14/19 Unknown nitrofurantoin macrocrystal 100 mg PO BID 02/14/19 02/14/19 Unknown tamsulosin [Flomax] 0.4 mg PO QAM 02/14/19 02/14/19 Unknown Past Medical History Medical History Agent orange exposure Hyperlipidemia BPH (benign prostatic hyperplasia) H/O malaria (Resolved) Anxiety COPD (chronic obstructive pulmonary disease) Gross hematuria Indwelling Smith catheter present SCC of lung (small cell carcinoma) Pneumonectomy and Chemotherapy (10 years ago) - Currently in remission Urinary retention Exercise / Class Metabolic Activity II 4-5 Yardwork/Stairs/Walk up hill (Mows lawn, camping, Able to climb FOS. Denies CP. Does report some WYATT with exertion since pneumonectomy. ) Past Surgical History Surgical History History of pneumonectomy LEFT History of bronchoscopy History of colonoscopy History of cystoscopy Past Anesthesia History No Hx of Anesthesia Complications and No Family Hx of Anesthesia Complications History of PONV No Hx of PONV and Hx of Motion Sickness (On amusement park rides) Social History Smoking Status: Former smoker tobacco type: cigarettes Smoking cigarettes per day: 40 pack year history Do You Dip or Chew Tobacco: No Smoking End Date: 1997 Hx Alcohol Use: Yes Alcohol type: beer alcohol intake frequency: holidays/special occasions only Hx Substance Use: No substance use type: does not use Review of Systems Patient denies chest pain, shortness of breath, joint pain, reflux, cough, palpitations. +WYATT/Wheezing (Since Pneumonectomy) Physical Exam Vital Signs BP: 117/75 P: 86 R: 16 T: 98.6 SPO2: 96% on RA ENMT Mouth: + dentures (Full set upper and lower dentures) and + edentulous Thyromental Distance: < 3.5 Finger Breadths (3) Mallampati Class: II Neck normal visual inspection, trachea midline and + facial hair; neck extension not limited Respiratory normal respiratory effort Auscultation: lungs clear to auscultation bilaterally and + diminished lung sounds (on left side) Cardiovascular Rate/Rhythm: regular rate and regular rhythm Heart Sounds: no murmur Vessels: no carotid bruit Neurologic moves all extremities Psychiatric Orientation: alert and oriented x 3 Testing Laboratory Results Laboratory Tests 02/10/19 02/10/19 08:00 08:00 WBC 9.64 Hgb 15.3 Hct 42.5 Plt Count 130 Sodium 139 Potassium 4.1 Chloride 106 Carbon Dioxide 25 BUN 23 H Creatinine 1.37 Glucose 121 H Laboratory Tests 02/13/19 13:00 Urine Color Red Urine Appearance Slightly Cloudy A Ur Specific [place] 1.006 Urine Protein Positive H Urine RBC >30 H Urine WBC 10-30 H Ur Epithelial Cells 0-5 Urine Bacteria Negative 02/13/19 - Urine Culture - Klebsiella pneumoniae Electrocardiogram Date: 09/02/18 Findings: + NSR @ (78) and + no change from (12/01/06) Other Testing Chest/Abdomen X-Ray 02/04/19 FINDINGS: Postoperative changes consistent with prior left pneumonectomy, unchanged. The right lung remains hyperexpanded and clear. Left mediastinal shift, unchanged. No pneumoperitoneum. No pneumatosis. No renal or ureteral calculi. The bowel gas pattern is unremarkable. No evidence for bowel obstru ction. Multiple pelvic fluid was are noted. Moderate well-formed stool seen within the colon. IMPRESSION: 1. Moderate well-formed stool within the colon. 2. No evidence for bowel obstruction. 3. Prior left pneumonectomy.
--- NOTE | 2019-02-15 13:25 | PAT Medication Instructions ---
Medication Instructions Date of Service February 15, 2019 Home Medications finasteride 5 mg PO HS multivitamin 1 tab PO QAM simvastatin 10 mg PO HS aspirin, buffered 325 mg PO DAILY buspirone 10 mg PO BID calcium carbonate-vitamin D3 [Calcium 500 + D] 1 tab PO BID olodaterol 2 inh INHALATION DAILY terazosin 5 mg PO BID nitrofurantoin macrocrystal 100 mg PO BID tamsulosin [Flomax] 0.4 mg PO QAM ASK your surgeon for instructions aspirin, buffered 325 mg PO DAILY - hold per Dr. Hammonds DO NOT take the morning of surgery multivitamin 1 tab PO QAM calcium carbonate-vitamin D3 [Calcium 500 + D] 1 tab PO BID Take morning of surgery With a small sip of water, OTHERWISE NOTHING TO EAT OR DRINK AFTER MIDNIGHT: buspirone 10 mg PO BID nitrofurantoin macrocrystal 100 mg PO BID tamsulosin [Flomax] 0.4 mg PO QAM terazosin 5 mg PO BID olodaterol 2 inh INHALATION DAILY Take evening before surgery finasteride 5 mg PO HS simvastatin 10 mg PO HS buspirone 10 mg PO BID calcium carbonate-vitamin D3 [Calcium 500 + D] 1 tab PO BID nitrofurantoin macrocrystal 100 mg PO BID terazosin 5 mg PO BID Other Notes If you have any questions please call us at [phone] or [phone] or [phone] or [phone]
[2019-02-21] MEDS ORDERED: LR 15ML/HR IV SCH (06:00)
[2019-02-21] MEDS ORDERED: CEFAZOLIN 2000MG 2,000 MG/15 ML SYR IV SCH (06:00)
--- NOTE | 2019-02-21 06:53 | History & Physical Bridge Note ---
Date of Service February 21, 2019 History & Physical Bridge Note I have examined the patient, reviewed the History & Physical and in the interval since the performance of the History & Physical I have noted the following changes of clinical significance: no changes noted
[2019-02-21] MEDS ORDERED: DEXAMETHASONE SOD INJ 4 MG/ML VIAL ONE (06:54)
[2019-02-21] MEDS ORDERED: ACETAMINOPHEN 1,000 MG/100 ML VIAL IV PRN (06:54)
[2019-02-21] MEDS ORDERED: MIDAZOLAM HCL 1 MG/ML 2ML VIAL ONE (06:54)
[2019-02-21] MEDS ORDERED: LIDOCAINE HCL 2% 2 ML VIAL/AMP(20MG/ML) INFIL ONE (06:54)
[2019-02-21] MEDS ORDERED: BELLADONNA/OPIUM SUPP 60 MG SUPP PR PRN ×2 (06:54→09:57)
[2019-02-21] MEDS ORDERED: fentaNYL citrate 100 MCG/2 ML VIAL ONE ×2 (06:54→08:17)
[2019-02-21] MEDS ORDERED: OXYCODONE HCL IR 5 MG TAB (IMMEDIATE RELEASE) PO PRN (06:54)
[2019-02-21] MEDS ORDERED: PROPOFOL IV EMULSION 10 MG/ML 20 ML VIAL IV ONE (06:54)
[2019-02-21] MEDS ORDERED: MoRPHine SULFATE 2 MG/ML CARP IV PRN (06:54)
[2019-02-21] MEDS ORDERED: ONDANSETRON INJ 2 MG/ML 2 ML VIAL ONE (06:54)
[2019-02-21] MEDS ORDERED: ATROPINE SULFATE 0.1 MG/ML 10ML SYR IV PRN (07:00)
[2019-02-21] MEDS ORDERED: ONDANSETRON INJ 2 MG/ML 2 ML VIAL IV PRN (07:00)
[2019-02-21] MEDS ORDERED: ePHEDrine sulfate 50 MG/ML AMP IV PRN (07:00)
[2019-02-21] MEDS ORDERED: PROMETHAZINE HCL 6.25 MG in SODIUM CHLORIDE 0.9% 50 ML IV PRN (07:00)
[2019-02-21] MEDS ORDERED: BELLADONNA/OPIUM SUPP 60 MG SUPP PR ONE (08:18)
--- NOTE | 2019-02-21 09:59 | Operative Report ---
Post Operative Report Pre & Post Diagnosis Operation Date: 02/21/19 07:15 Pre-Op Diagnosis: Benign Prostatic Hypertrophy, Gross Hematuria Post-Op Diagnosis: Benign Prostatic Hypertrophy, Gross Hematuria Procedure Operation Date: 02/21/19 07:15 Actual Procedures p Transurethral Resection Prostate, Fulguration of large varicose vein at trigone and bladder neck, clot evacuation. - Clifford Hammonds II, DO Surgeon Clifford Hammonds II, DO Desk Clerks Supervisor None Estimated Blood Loss 30 Findings Consistent with Post-Op Diagnosis Severely enlarge and bleeding median lobe with severe varicosity throughout prostate. Specimens Prostate Resection Chips Drains [address] Anesthesia Type General Complications none Disposition Disposition: Recovery Room Indications Severe hematuria and clot retention. Risks and benefits discussed at length. Description of Procedure Patient was consented and brought back to the operating room. Patient was placed under anesthesia in the supine position and moved to the dorsal lithotomy position. Patient was prepped and draped in the regular sterile fashion. A time out was completed. A 30degree Cystoscope was placed into the bladder and the entire bladder was examined. The UO's were identified. The prostate had a massive median lobe with severe varicosity. Patient was actively bleeding and severe visualization issues due to the bleeding. A dong was placed and the bladder irrigated to remove clots. The resection scope was placed. Very large varicose veins and active bleeding was discovered. These were throughout the prostate, bladder neck, and at the trigone. These were fulgurated to control bleeding. Further clot evacuation was completed. The prostate was then assessed. A channel was created from the bladder neck to the veru at the 5 and 7 oclock positions. The median lobe was extremely large and still obstructing. The median lobe was resected to remove the bulky lobe. This significant improved visualization. The trigone was found to have very large bleeding varicose veins that were further fulgurated. The lateral lobes were then resected from bladder neck to the region of the veru starting at 1 and 11 oclock and moving towards the channel. A large bulk of prostate tissue was resected. The tissue was irrigated. The entire resection bed was inspected and all bleeding controlled. Both UO's were identified and away from the resection and fulgurated areas. No active bleeding was discovered. The scope was removed. A [address] was [address]. It was irrigated and set to continuous irrigation. Very light pink irrigation was noted. The patient was cleaned, aroused from anesthesia, and transferred to the pacu in stable condition having tolerated the procedure well with no complications. I was present and participated in all aspects of the procedure. The patient will be monitored in the PACU until transferred. I attest to the content of the Intraoperative Record and any orders documented therein. Any exceptions are noted below.
[2019-02-21] MEDS: fentaNYL citrate 100 MCG/2 ML VIAL IV PRN ×2 (10:19→10:24)
--- NOTE | 2019-02-21 11:42 | Anesthesiology Progress Note ---
Date of Service February 21, 2019 Anesthesia Post Procedure Vital Signs Vital Signs: Temp Pulse Pulse Resp BP Pulse Ox 02/21/19 11:35 36.6 C 61 14 134/82 99 02/21/19 11:25 36.6 C 59 L 14 130/81 98 02/21/19 11:15 36.6 C 59 L 12 144/83 H 98 02/21/19 11:05 36.6 C 58 L 16 144/84 H 97 02/21/19 10:55 36.6 C 61 15 141/81 H 98 02/21/19 10:45 36.5 C 70 9 L 159/77 H 98 02/21/19 10:35 36.5 C 63 13 141/84 H 97 02/21/19 10:25 36.5 C 73 13 143/93 H 96 02/21/19 10:15 36.5 C 76 13 149/102 H 93 02/21/19 10:07 36.5 C 71 16 167/100 H 95 02/21/19 05:57 36.5 C 91 H 20 141/96 H 97 Pain Intensity Scrotal: Pain Intensity: 2 Transfer of Care Handoff Completed per policy Notes Mental Status: alert / awake / arousable Patient Amnestic to Procedure: Yes Nausea / Vomiting: adequately controlled Pain: adequately controlled Airway Patency, RR, SpO2: stable & adequate BP & HR: stable & adequate Hydration State: stable & adequate Anesthetic Complications: no major complications apparent
[2019-02-21] MEDS: TAMSULOSIN HCL 0.4 MG CAP PO SCH (13:46)
[2019-02-21] MEDS: CALCIUM 600MG + VIT D 400 IU TAB PO SCH ×2 (13:46→20:35)
[2019-02-21] MEDS: SODIUM CHLORIDE 0.9% 1000ML 1,000 ML IV SCH ×3 (13:47→22:35)
[2019-02-21] MEDS: CEFAZOLIN 2000MG 2,000 MG/15 ML SYR IV SCH ×2 (13:47→22:23)
[2019-02-21] MEDS ORDERED: SIMVASTATIN 10 MG TAB PO SCH (21:00)
[2019-02-21] MEDS ORDERED: FINASTERIDE 5 MG TAB PO SCH (21:00)
[2019-02-22] MEDS: CEFAZOLIN 2000MG 2,000 MG/15 ML SYR IV SCH ×2 (06:17→14:08)
[2019-02-22] MEDS: CALCIUM 600MG + VIT D 400 IU TAB PO SCH (08:12)
[2019-02-22] MEDS: TAMSULOSIN HCL 0.4 MG CAP PO SCH (08:12)
[2019-02-22] MEDS: SODIUM CHLORIDE 0.9% 1000ML 1,000 ML IV SCH (08:14)
--- NOTE | 2019-02-22 10:22 | Anesthesiology Progress Note ---
Date of Service February 22, 2019 Anesthesia Post Procedure Vital Signs Vital Signs: Temp Pulse Pulse Resp BP Pulse Ox 02/22/19 07:40 36.6 C 64 13 150/82 H 96 02/22/19 03:20 36.6 C 63 16 148/90 H 95 02/21/19 22:58 36.6 C 54 L 16 139/79 96 02/21/19 19:51 36.6 C 75 17 122/81 98 02/21/19 15:07 36.6 C 73 17 122/78 95 02/21/19 14:07 36.4 C L 66 18 118/81 99 02/21/19 13:01 76 16 134/86 98 02/21/19 12:35 81 16 145/89 H 99 02/21/19 12:05 36.9 C 68 14 142/87 H 100 02/21/19 11:55 36.7 C 65 19 132/81 100 02/21/19 11:45 36.6 C 64 16 138/80 99 02/21/19 11:35 36.6 C 61 14 134/82 99 02/21/19 11:25 36.6 C 59 L 14 130/81 98 02/21/19 11:15 36.6 C 59 L 12 144/83 H 98 02/21/19 11:05 36.6 C 58 L 16 144/84 H 97 02/21/19 10:55 36.6 C 61 15 141/81 H 98 02/21/19 10:45 36.5 C 70 9 L 159/77 H 98 02/21/19 10:35 36.5 C 63 13 141/84 H 97 02/21/19 10:25 36.5 C 73 13 143/93 H 96 Pain Intensity Scrotal: Pain Intensity: 2 Notes Mental Status: alert / awake / arousable and participated in evaluation Nausea / Vomiting: adequately controlled Pain: adequately controlled Airway Patency, RR, SpO2: stable & adequate BP & HR: stable & adequate Hydration State: stable & adequate
--- NOTE | 2019-02-22 10:49 | Urology Progress Note ---
Date of Service February 22, 2019 Assessment & Plan (1) BPH (benign prostatic hyperplasia): POD #1 s/p TURP. Doing very well. CBI clamped to 50%, patient encouraged to ambulate with nursing staff to assess toleration. If tolerated, continue to clamp. Will check labs this AM. If tolerating likely DC this afternoon. Would consider continued observation until this evening/tomorrow morning if bleeding persisting. (2) Hematuria: Subjective 73 YO male POD #1 s/p TURP. Patient reports feeling well this morning. CBI intact running clear. Per nursing no bleeding overnight. Smith not bothersome. No pain. No nausea/vomiting. No fevers/chills. Review of Systems Review of Systems: All systems reviewed & are unremarkable except as noted in HPI & below Physical Exam Physical Exam: WN/WD NAD. Resp effort normal. No JVD. Abd soft, nontender. : bladder nontender, nondistended. CBI clamped to 50%, tolerating with clear urine return. A&O x3 appropriate affect. Results & Data Vital Signs (Past 12 Hours) Vital Signs Temp Pulse Pulse Resp BP Pulse Ox 02/22/19 07:40 36.6 C 64 13 150/82 H 96 02/22/19 03:20 36.6 C 63 16 148/90 H 95 02/21/19 22:58 36.6 C 54 L 16 139/79 96 (1) Hematuria Hematuria type: gross Qualified Code(s): R31.0 - Gross hematuria
[2019-02-22 11:34] LABS: Basophils # (auto) 0.01 K/uL (0-0.2); Basophils % (auto) 0.1 %; Eosinophils # (auto) 0.02 K/uL (0-0.5); Eosinophils % (auto) 0.2 %; Hematocrit (blood only) 37.2 % (42-52); Hemoglobin 13.2 g/dL (14.0-18.0); Immature Granulocytes # (auto) 0.04 K/uL (0.00-0.02); Immature Granulocytes % (auto) 0.4 %; Lymphocytes # (auto) 1.01 K/uL (1.2-3.4); Lymphocytes % (auto) 8.9 %; Mean Corpuscular Hgb Conc 35.5 g/dL (32-36); Mean Corpuscular Volume 91.4 fL (80-100); Monocytes # (auto) 0.95 K/uL (0.11-0.59); Monocytes % (auto) 8.3 %; Neutrophils # (auto) 9.36 K/uL (1.4-6.5); Neutrophils % (auto) 82.1 %; Platelet Count 180 K/uL (130-400); RDW Standard Deviation 43.1 fL (36.4-46.3); Red Blood Count 4.07 M/uL (4.7-6.1); White Blood Count 11.39 K/uL (4.8-10.8)
[2019-02-22 11:41] LABS: BUN Creatinine Ratio 9.8 (10-20); Calcium 8.9 mg/dl (8.5-10.1); Creatinine Clr Calc Pharmacy 53.3 ml/min; Est GFR (African American) 57.8; Est GFR (Non-African American) 49.8; Potassium 4.2 mmol/L (3.5-5.1)
--- NOTE | 2019-02-27 07:03 | Discharge Summary ---
Date of Service February 27, 2019 Admission HPI Per Admitting Provider Admitted with severe hematuria and BPH with obstruction. Had TURP and admitted for observation. See H&P Admission Exam Per Admitting Provider See H&P For full exam Principal Diagnosis Gross Hematuria BPH with obstruction Discharge Exam ENMT Mouth: + dentures and + edentulous Mallampati Class: II Neck normal visual inspection, trachea midline and + facial hair; neck extension not limited Respiratory no respiratory distress and no labored breathing Cardiovascular Rate/Rhythm: not tachycardic Gastrointestinal (Abdomen) Inspection/Auscultation: abdomen normal to inspection; abdomen not distended and no abdominal edema Musculoskeletal Head/Neck/Chest: normocephalic and head atraumatic; head normal to inspection Spine: normal cervical ROM Skin no rashes and no ulcers Neurologic moves all extremities Psychiatric Orientation: alert and oriented x 3 Genitourinary Smith clear light pink Discharge Data Allergies Allergy/AdvReac Type Severity Reaction Status Date / Time Fish Containing Products Allergy Verified 02/22/19 10:19 No Known Drug Allergies Allergy Unknown Verified 02/21/19 12:19 shellfish derived Allergy Verified 02/22/19 10:19 SEAFOOD Allergy Intermediate Hives Uncoded 02/21/19 05:49 Procedures Performed Operation Date: 02/21/19 07:15 Actual Procedures p Transurethral Resection Prostate(Not Applicable) - Clifford Hammonds II, DO Hospital Course (1) BPH (benign prostatic hyperplasia): POD #1 s/p TURP. Doing very well. CBI clamped to 50%, patient encouraged to ambulate with nursing staff to assess toleration. If tolerated, continue to clamp. Will check labs this AM. If tolerating likely DC this afternoon. Would consider continued observation until this evening/tomorrow morning if bleeding persisting. (2) Hematuria: Total Time Total Time Spent Total Time Spent (In Minutes): 10 Total Time Includes: Examination of the Patient, Discharge Planning, Medication Reconciliation and Communication With Other Providers Discharge Plan Discharge Items Patient Disposition: Home - Self-Care Reason For Visit: Benign Prostatic Hypertrophy Discharge Diagnosis: BPH with urinary obstruction Discharge Goals: Improve function and Therapeutic intervention Activity: Resume your previous activity Non-emergency contact: Urologist Call non-emergency contact if: you have any medication questions, your pain is concerning for you and your temperature is above 101 Follow-up/Referrals: Trav Yadav [Primary Care Provider] - Diet: Regular Addtl Provider Instructions: Please keep all follow up appointments at the Urology office as scheduled. Please call office at [phone] if any questions or concerns. Smith: Okay to hand irrigate as needed with sterile water. If catheter is not draining properly or you are concerned about the amount of bleeding call office right away or report back to the ER. Antibiotics: please finish completely as prescribed. Pain: take Tylenol as needed. Tamsulosin & Finasteride: continue taking these for now, Dr. Hammonds may discontinue one or both of these medication(s) at your follow up appointment. Aspirin: do not start taking this medication until your urine appears clear yellow for 48 hours. Prescriptions: New ciprofloxacin HCl 500 mg tablet 500 mg PO BID Qty: 6 RF: 0 Continued multivitamin Tablet 1 tab PO QAM RF: 0 finasteride 5 mg Tablet 5 mg PO HS RF: 0 simvastatin 20 mg Tablet 10 mg PO HS RF: 0 tamsulosin [Flomax] 0.4 mg capsule 0.4 mg PO QAM RF: 0 buspirone 10 mg Tablet 10 mg PO BID RF: 0 calcium carbonate-vitamin D3 [Calcium 500 + D] 500 mg(1,250mg) -200 unit Tablet 1 tab PO BID RF: 0 olodaterol 2.5 mcg/actuation Mist 2 inh INHALATION DAILY RF: 0 terazosin 5 mg Capsule 5 mg PO BID RF: 0 Discontinued nitrofurantoin macrocrystal 100 mg Capsule 100 mg PO BID RF: 0 aspirin, buffered 325 mg Tablet 325 mg PO DAILY RF: 0 Stand-Alone Forms: [facility] Discharge Orders: Discharge Order (Routine); Ordered 02/22/19 Ordered By: Rina Rosa Admission Data Admit Date/Time: 02/21/19 06:54 Attending Provider: Clifford Hammonds II Admit Provider: Clifford Hammonds II Primary Care Provider: Trav Yadav Service: Surgical Services Other Interventions: Discharge Summary Assessment (RN) Last Done: 02/22/19 16:07 Pending Studies at Discharge: Yes Studies:: pathology DC Date/Time DO NOT enter until pt leaves facility: 02/22/19 16:58
== END 2019-02-22 16:58 | disposition home or self-care (01) ==
LOC: ASU 05:22 → 3W 05:22